=== PATIENT | male | born 1990 | race Caucasian/White ===

== ENCOUNTER 2020-10-02 04:03 | Emergency (ER) | payer OTHER ==
[~2020-10-02] VITALS: Ht 175.3 cm; Wt 68.2 kg
[2020-10-02] MEDS ORDERED: FAMOTIDINE 20 MG TAB PO ONE (04:35)
[2020-10-02] MEDS ORDERED: IBUPROFEN 600MG TAB PO ONE (04:35)
[2020-10-02] MEDS ORDERED: KETOROLAC 60MG 2ML VIAL IM ONE (05:30)
[2020-10-02] MEDS ORDERED: CYCLOBENZAPRINE 10MG TABLET PO ONE (05:30)
[2020-10-02] MEDS ORDERED: MAALOX 30 ML SUSP *UDC PO ONE (05:30)
--- NOTE | 2020-10-02 05:32 | REPVR ---
PROCEDURE INFORMATION: Exam: XR Chest Exam date and time: 10/02/2020 5:22 AM Age: 30 years old Clinical indication: Other: Chest pain TECHNIQUE: Imaging protocol: XR of the chest Views: 2 views. COMPARISON: No relevant prior studies available. FINDINGS: Lungs: Unremarkable. No consolidation. Pleural spaces: Unremarkable. No pleural effusion. No pneumothorax. Heart/Mediastinum: Unremarkable. No cardiomegaly. Bones/joints: Unremarkable. IMPRESSION: No acute findings. Electronically signed by: Itz Del Angel On 10/02/2020 05:33:01 AM
[2020-10-02] MEDS ORDERED: PEPC1TAB5 PO ×2 (06:42→06:54)
[2020-10-02] MEDS ORDERED: IBUP-1022 PO ×2 (06:42→06:54)
[2020-10-02] MEDS ORDERED: MAALSUS19 PO ×2 (06:43→06:54)
[2020-10-02] MEDS ORDERED: ATRO0.063 INH ×2 (06:44→06:54)
[2020-10-02 06:57] VITALS: BP 125/72
--- NOTE | 2020-10-02 20:01 | ECGEPIP ---
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
== END 2020-10-02 06:58 | disposition home or self-care (01) ==
LOC: M ED 04:03
DX: R07.89 Other chest pain (principal)
CPT/HCPCS: 71046; 93005; 96372; 99284; J1885

== ENCOUNTER → 2022-03-20 | Outpatient (REF) | payer OTHER ==
[~2022-03-20] MED LIST: ATRO0.063 INH; IBUP-1022 PO; MAALSUS19 PO; PEPC1TAB5 PO
== END ==
LOC: M LAB REF 15:40
PROVIDERS: ATTEND Surgery
DX: D17.23 Benign lipomatous neoplasm of skin and subcutaneous tissue of right leg (principal)

== ENCOUNTER 2022-06-16 04:13 | Emergency (ER) | payer OTHER ==
[~2022-06-16] VITALS: Ht 175.3 cm; Wt 72.4 kg
[2022-06-16] MEDS ORDERED: ACET-841 PO (04:24)
[2022-06-16] MEDS ORDERED: KETOROLAC 30 MG/ML 1ML VIAL IV ONE (07:15)
[2022-06-16 08:21] LABS: BASO % 0.2 % (0.0-1.0); EOS % 0.2 % (0.0-3.0); HEMATOCRIT 44.7 % (42.0-52.0); HEMOGLOBIN 15.2 g/dl (13.5-17.5); LYMPH # 1.5 10^3/uL (1.5-5.0); LYMPH % 17.6 % (24.0-44.0); MEAN CORPUSCULAR HEMOGLOBIN 31.5 pg (27.0-33.0); MEAN CORPUSCULAR VOLUME 92.5 fl (80.0-96.0); MONO # 0.7 10^3/uL (0.0-0.8); MONO % 8.7 % (2.0-8.0); NEUTROPHILS % 72.9 % (36.0-66.0); PLATELET COUNT, AUTOMATED 188 10^3/uL (150-450); RED BLOOD COUNT 4.83 10^6/uL (4.30-6.10); WHITE BLOOD COUNT 8.2 10^3/uL (4.0-10.0)
[2022-06-16] MEDS ORDERED: ISOVUE-370 76% 100ML VIAL As Ordered ONE (08:47)
[2022-06-16 08:50] LABS: ERYTHROCYTE SEDIMENTATION RATE 6 mm/hr (0-15)
[2022-06-16 09:17] LABS: ALBUMIN 4.4 GM/DL (3.2-5.2); BILIRUBIN,DIRECT 0.3 MG/DL (0.0-0.2); BILIRUBIN,TOTAL 0.9 MG/DL (0.2-1.0); C REACTIVE PROTEIN QUANTITATIV 6.65 MG/DL (0.00-0.30); TOTAL PROTEIN 7.7 GM/DL (6.4-8.2)
[2022-06-16] MEDS ORDERED: CIPR750T2 PO (09:43)
[2022-06-16] MEDS ORDERED: IBUP80TA PO (09:43)
[2022-06-16 10:00] VITALS: BP 133/80
== END 2022-06-16 10:02 | disposition home or self-care (01) ==
LOC: M ED 04:13
DX: H60.12 Cellulitis of left external ear (principal); R93.7 Abnormal findings on diagnostic imaging of other parts of musculoskeletal system; K21.9 Gastro-esophageal reflux disease without esophagitis
CPT/HCPCS: 70487; 80047; 80076; 85025; 85652; 86140; 96374; 99284; J1885